=== PATIENT | female | born 1990 | race Caucasian/White ===

== ENCOUNTER 2017-08-26 17:15 | Emergency (ER) | payer BC, OTHER ==
[~2017-08-26] VITALS: Ht 160 cm; Wt 79.3 kg
[~2017-08-26 17:15] MED LIST: BSP/10 PO; FLUT0.0529 NAE; ZLF/50 PO
[2017-08-26 17:19] VITALS: TEMP 36.4; Ht 160 cm; Wt 79.3 kg
[2017-08-26] MEDS ORDERED: METH10TA4 PO (17:39)
[2017-08-26] MEDS ORDERED: 5-ME1POW15 PO (17:39)
[2017-08-26] MEDS ORDERED: FAMOTIDINE 20 MG TAB PO ONE (18:15)
--- NOTE | 2017-08-26 18:45 | DIAGNOSTIC IMAGING REPORT ---
CHEST 2 VIEWS ROUTINE CLINICAL HISTORY: cough COMPARISON STUDY: 11/30/2014 FINDINGS: The cardiac and mediastinal contours are normal. There is no evidence of focal pulmonary consolidation. There is no evidence of failure. No pleural effusions are visualized.[ IMPRESSION: No active disease in the chest. Electronically signed by: Berhane Padron M.D. 08/26/2017 6:44 PM Dictated Date/Time: 08/26/2017 6:44 PM
--- NOTE | 2017-08-26 19:15 | EMERGENCY ROOM VISIT NOTE ---
History First contact with patient: 17:41 Chief Complaint: COUGH Stated Complaint: FATIGUE,COUGH,LIGHTHEADED,NASAL CONGESTION Nursing Triage Summary: Patient ambulatory to triage with a steady and upright gait, states "I have had chronic fatigue for months and a cough. My allergy medication seems to keep my cough under some sort of control. My mucous has been a lot more thick. The cough isn't as bad when I am well hydrated because that breaks up a lot of mucous. Sometimes, I get a tight feeling in my throat and chest from the mucous." History of Present Illness The patient is a 27 year old female who presents to the Emergency Room with complaints of cough The cough started a few months ago. It is productive of white sputum and is without any blood. She says that drinking water makes it better. It is associated with a feeling of throat congestion. It is also associated with fatigue, dizziness, sore throat, chills and a mild stuffy nose. These symptoms have been ongoing for the last couple of months. She has a PMH of anxiety and adhd. She is a non smoker and lives alone in [place]. She has a PCP but does not see them regularly. Review of Systems CONSTITUTIONAL: + chills No fever sweats or night sweats. No recent infections. No weight loss or weight gain. NEUROLOGIC: No headaches, dizziness or syncopal episodes. HEENT: No hearing or visual changes. No sinus or nasal issues. Throat fullness and occasional difficulty swallowing CARDIOVASCULAR: No chest pain or palpitations. RESPIRATORY: No SOB, dyspnea, hemoptysis + cough GASTROINTESTINAL: No nausea, vomiting, diarrhea, constipation, reflux, melena or hematochezia. GENITOURINARY: No dysuria, frequency, urgency, incontinence or hematuria. MUSCULOSKELETAL: no joint pain or muscle aches SKIN: No rashes or skin lesions. HEMATOLOGIC: No bleeding or abnormal bruising Past Medical/Surgical History Medical Problems: (1) Anxiety ADHD Family History No significant family history Social History Smoking Status: Never Smoker Alcohol Use: none Housing Status: lives with family Occupation Status: student Current/Historical Medications Scheduled 5-Methyltetrahydrofolate (Bulk (Methyl Folate), 1 DOSE PO DAILY Methylphenidate (Ritalin), 10 MG PO DAILY Allergies NKDA Physical Exam Vital Signs Date Time Temp Pulse Resp B/P (MAP) Pulse Ox O2 Delivery O2 Flow Rate FiO2 08/26/17 19:24 86 16 134/88 100 08/26/17 17:19 36.4 105 20 150/84 100 Room Air 08/26/17 17:19 100 Room Air Physical Exam HEENT: Head - normocephalic and atraumatic. Pupils are equal, round, and reactive to light. Extraocular eye muscles are intact and sclera are anicteric. Ears - bilaterally patent canals with noninjected tympanic membranes and no evidence of hemotympanum. Nose - moist nasal mucosa without discharge. Mouth - moist buccal mucosa. Oropharynx is nonerythematous and there is no tonsillar exudate or edema noted. Neck: Supple; no JVD, nuchal rigidity, cervical lymphadenopathy, or auscultated bruits. Heart: Regular rate and rhythm. There is a normal S1 and S2 with no murmurs, clicks, or gallops appreciated. Lungs: Clear to auscultation bilaterally with no wheezes, rales, or rhonchi. Abdomen: Soft, completely nontender, nondistended, with good bowel sounds. There are no palpable pulsatile masses or hepatosplenomegaly. There is no guarding, rigidity, or rebound noted. Extremities: No evidence of cyanosis, clubbing, or edema. There are easily palpable peripheral pulses. Medical Decision & Procedures Medications Administered Medications (Trade) Dose Ordered Sig/Keven Route Start Time Stop Time Status Last Admin Dose Admin Famotidine (Pepcid Tab) 20 mg NOW ONCE PO 08/26/17 18:15 08/26/17 18:16 DC 08/26/17 18:25 20 MG ED Course 1730: I evaluated the patient and a full history and examination were performed 0: I discussed the case with Dr. Retana and I ordered a CXR 1899: The CXR returned as normal and I reevaluated the patient and she said she felt the same 1904: I spoke to the patient and she agreed to follow up with her PCP for further workup and management Medical Decision 27 year old female with a PMH of anxiety and ADHD. Her vital signs in the ED have been stable and her examination was unremarkable. She had a CXR which was unremarkable. I believe the patient has a viral URI and may have an associated globus like sensation in her throat. She will need close follow up with her PCP to have regular reassurance. Impression Primary Impression: Upper respiratory infection Departure Information Dispostion Home / Self-Care Condition GOOD Referrals Ana Whitmore,C.R.N.P. (PCP) Patient Instructions My [facility] Additional Instructions In the hospital we did a CXR which returned as normal Please follow up with your PCP (family doctor) in the next 2-3 days If you have any worsening cough, chest pain, or fever >100.4 then please come back to the emergency department or go see your PCP Problem Qualifiers Primary Impression: Upper respiratory infection URI type: unspecified viral URI Qualified Codes: J06.9 - Acute upper respiratory infection, unspecified
[2017-08-26 19:24] VITALS: BP 134/88; PULSE 86; O2SAT 100
--- NOTE | 2017-08-26 23:17 | EMERGENCY ROOM VISIT NOTE ---
ED Visit Note First contact with patient: 17:41 Resident Physician Supervision Note: I interviewed and examined the patient. Discussed with Dr. Thompson and agree with findings and plan as documented in the note. Any exceptions or clarifications are listed here: [None] Documented By: Davida Retana
== END 2017-08-26 19:26 | disposition home or self-care (01) ==
LOC: C.EDB 17:17 → C.EDA 19:26
DX: J06.9 Acute upper respiratory infection, unspecified (principal); F90.9 Attention-deficit hyperactivity disorder, unspecified type